=== PATIENT | male | born 1965 | race Caucasian/White ===

== ENCOUNTER 2022-12-25 11:15 | Outpatient (RCR) | payer OTHER, SELFPAY ==
--- NOTE | 2022-11-28 10:23 | PTOPEVAL1 ---
Assessment and note entered by Rosaura Boyer DPT Evaluation Information Assessment Status Evaluation Subjective Information Pt reports injuring his back a few weekends ago after running a chain saw and picking up a lot of brush. Tried chiropractor a few times which did not help. Has had back problems on and off for 20 years. Currently is having back pain and pain radiating down his right leg to his ankle laterally. Feels some n/t as well. No pain radiating down his left LE. Pain increases with prolonged standing. Feels relief with sitting. Pain relieved with pain pills as well. Has been able to cut back at work due to his pain. Had to take a break from his normal cooking/cleaning at home but has gradually started to do them again although he still has pain. No return to MD scheduled currently. Reported Pain Level Pain Score 3: Self Report Assessment PT Clinical Summary The patient is presenting to skilled therapy with a several week history of right radiating LBP. He presents with decreased lumbar ROM and signs of neural tension which are contributing to his pain with standing activities. He will benefit from skilled therapy to address these impairments and safely return to his prior level of function. Plan of Care Interventions Electrical Stimulation,Gait Training,Hot Pack/Cold Pack,Manual Therapy,Neuro Re-education,Patient/ Caregiver Education,Therapeutic Activities, Therapeutic Exercise,Self-Care/Home Management PT Services Indicated Yes Treatment Frequency and 2 times a week for 4 weeks Duration These treatments will address the objective and functional deficits as defined above. The patient will be advanced safely and appropriately in order for the patient to progress towards his/her prior level of function. Additional exercises will be introduced and as well as a comprehensive home exercise program upon discharge, if needed, ?to ensure carryover of functional gains achieved in the clinic. This treatment plan has been reviewed and agreement upon by the patient.
--- NOTE | 2022-12-25 16:33 | PTOPPROG ---
Assessment and note entered by Margaret Jaime, PT Assessment Status Progress Report Subjective Information Pt reports feeling 80-85% improved overall. No more pain in back but still numbness on outside right leg. Feels pressure today in right hip area. 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 Back to normal amount of work and cooking and cleaning. Reports able to stand at least an hour at a time. Usually is resting for other reasons. Reports no longer requires pain medication. Assessment PT Clinical Summary Pt reports feels 80-85% improved, cont to have numbness in right lower leg. Pressure in rihgt hip resolved with muscle energy technique today. Pt cont to demo decreased lumbar flexion, tight hamstrings, and symptoms in right leg. Was educated today on appropriate body mechanics while sitting at home. Would benefit from cont therapy at a reduced frequency to continue education on appropriate body mechanics with higher level activities, continued ROM exercises, muscle activation and reduce discomfort to return to prior level of function. Plan of Care Interventions Electrical Stimulation,Gait Training,Hot Pack/Cold Pack,Manual Therapy,Neuro Re-education,Patient/ Caregiver Educati,Therapeutic Activities, Therapeutic Exercise,Self-Care/Home Management PT Services Indicated Yes Treatment Frequency and 1 times a week for 6 weeks Duration These treatments will address the objective and functional deficits as defined above. The patient will be advanced safely and appropriately in order for the patient to progress towards his/her prior level of function. Additional exercises will be introduced and as well as a comprehensive home exercise program upon discharge, if needed, ?to ensure carryover of functional gains achieved in the clinic. This treatment plan has been reviewed and agreement upon by the patient.
--- NOTE | 2023-01-01 11:18 | PTOPDC ---
Assessment and note entered by Margaret Jaime, PT Assessment Status Discharge - Pt Not Present Subjective Information Pt reports feeling 80-85% improved overall. No more pain in back but still numbness on outside right leg. Feels pressure today in right hip area. 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 Back to normal amount of work and cooking and cleaning. Reports able to stand at least an hour at a time. Usually is resting for other reasons. Reports no longer requires pain medication. Assessment PT Clinical Summary Pt reports is doing well currently. Has opted to cease therapy at this time due to insurance yearly limitation on visits and will return if necessary at a later time. Thus pt is being discharged from therapy services.
== END 2023-01-01 11:39 | disposition home or self-care (01) ==
LOC: ANHHIPT 11:15
PROVIDERS: PCP Family Medicine; Visit Provider Family Medicine
DX: M54.50 Low back pain, unspecified (principal); S39.92XD Unspecified injury of lower back, subsequent encounter
CPT/HCPCS: 97014; 97110; 97112; 97140; 97161; G0283

== ENCOUNTER 2023-03-10 09:00 | Outpatient (NON) | payer OTHER, SELFPAY | END 2023-03-10 09:01 | disposition home or self-care (01) | LOC: ANHLAB 03-11 07:13 | PROVIDERS: PCP Physician Assistant Medical; Visit Provider Internal Medicine Gastroenterology | DX: Z12.11 Encounter for screening for malignant neoplasm of colon (principal) | CPT/HCPCS: 88305 ==

== ENCOUNTER 2023-06-23 08:45 | Outpatient (RCR) | payer OTHER, SELFPAY ==
--- NOTE | 2023-05-13 11:04 | PTOPEVAL1 ---
Assessment and note entered by Margaret Jaime, PT Evaluation Information Assessment Status Evaluation Diagnosis sprain of right rotator cuff capsule, right shoulder pain, abnormal posture Onset ~3 months Subjective Information Was on vacation last week and had no pain. Yesterday was shoveling and pain returned. Is also left handed. Increased use irritated shoulder, is bothersome because sleeps on right side. Reported Pain Level Pain Score 3: Self Report Assessment PT Clinical Summary Pt presents w/ complaints of right shoulder pain, diagnosis of ligament sprain, and abnormal postures. SC joint stress test (+), negative for rotator cuff, or labral tears. Demo's significantly internally rotated BUEs, pec major and minor tightness, and decreased cervical and thoracic ROM. Pt will thus benefit from physical therapy to address deficits, improve postural stability, and decrease discomfort with use. Plan of Care Interventions Electrical Stimulation,Hot Pack/Cold Pack,Manual Therapy,Neuro Re-education,Patient/Caregiver Educati,Therapeutic Activities,Therapeutic Exercise,Self-Care/Home Management,Ultrasound PT Services Indicated Yes Treatment Frequency and 1-2x weekly x 6 Duration These treatments will address the objective and functional deficits as defined above. The patient will be advanced safely and appropriately in order for the patient to progress towards his/her prior level of function. Additional exercises will be introduced and as well as a comprehensive home exercise program upon discharge, if needed, ?to ensure carryover of functional gains achieved in the clinic. This treatment plan has been reviewed and agreement upon by the patient.
--- NOTE | 2023-05-13 11:05 | OPREHPOC ---
Outpatient Therapy Plan of Care This is a Multidisciplinary Plan of Care that may contain components documented by all disciplines (PT, OT, and ST.) PT Problem 1 PT Problem #1 Knowledge Deficit PT Goal 1 Goal Pt will be independent in HEP Target Visit 8 PT Goal 2 Goal Pt will verbalize understanding of diagnosis and prognosis Target Visit 8 PT Problem 2 PT Problem #2 Pain PT Goal 1 Goal Pt will report greatest pain level at 3/10 or less Target Visit 8 PT Goal 2 Goal Pt will report resolution of pain Target Visit 12 PT Problem 3 PT Problem #3 Impaired Flexibility PT Goal 1 Goal Pt will demo pec major and minor flexibility WFL Target Visit 12 PT Problem 4 PT Problem #4 Impaired Coordination PT Goal 1 Goal Pt will demo ability to perform scapular stability with dynamic UE activities Target Visit 12
--- NOTE | 2023-06-23 10:06 | PTOPDC ---
Assessment and note entered by Margaret Jaime, PT Assessment Status Discharge Diagnosis sprain of right rotator cuff capsule, right shoulder pain, abnormal posture Onset ~3 months Subjective Information Pt reports is still irritated but has been using it a lot. Has not been able to get a posture support or new pillow. Was laying floor all weekend. Throwing is still problematic Still difficulty sleeping; improved, not waking up as much Has'nt been able to do exercises as would like, and cont to have difficulty with Overall pain is better Self-percieved improvement: 60% Reported Pain Level Pain Score 1: Self Report Assessment PT Clinical Summary Pt has attended therapy consistently for right shoulder pain and rotator cuff strain. Pt reports overall improvement of 60%, less pain with night time. Cont to have rounded shoudler postures and winging, improved pectoralis muscle flexibilty, full active ROM in all planes without pain. Pt has met multiple goals, progressed in multiple aspects, but has not met superintendent terminal goals for pain. Pt appears to have met max benefit for therapy at this time. Would benefit from further testing/ imaging and possible orthopeadic consult. Plan of Care PT Services Indicated No
== END 2023-07-15 11:55 | disposition home or self-care (01) ==
LOC: ANHHIPT 08:45
PROVIDERS: PCP Physician Assistant Medical; Visit Provider Family Medicine
DX: S43.421A Sprain of right rotator cuff capsule, initial encounter (principal); M25.511 Pain in right shoulder
CPT/HCPCS: 97014; 97110; 97112; 97140; 97161; 97750; G0283

== ENCOUNTER 2024-09-20 15:24 | Outpatient (CLI) | payer OTHER, SELFPAY ==
--- NOTE | ~2024-09-20 | US_ITS ---
Left lower quadrant ULTRASOUND Ordering provider: Renate Limon PA-C History: . R19.04 - Left lower quadrant abdominal swelling, mass and... . Comparison: None. FINDINGS/impression: Hypoechoic area is seen measuring 0.3 x 0.2 x 0.2 cm suggestive of a small lipoma versus a cyst. Lymp h node is less likely.. Vascularity is seen posterior to the area Reviewed, dictated and finalized at location A. OL OPERATOR
== END 2024-09-20 15:25 | disposition home or self-care (01) ==
PROVIDERS: PCP Physician Assistant Medical; Visit Provider Physician Assistant Medical
DX: R19.04 Left lower quadrant abdominal swelling, mass and lump (principal)
CPT/HCPCS: 76705

== ENCOUNTER 2024-10-11 00:37 | Day surgery (SDC) | payer BC, SELFPAY ==
[2024-10-08 12:38] VITALS: BMI 39.4
--- NOTE | 2024-10-08 12:42 | PC.NURSE ---
Report to the Outpatient Waiting Room, entrance under the green pavilion located off [facility], at time _1000_ on date _[id number]_. Planned Procedure Time: _1100_.? Time changes happen often and if your time is changed the preop area will call you the afternoon before. - You and your visitor will be asked to self-screen and do not enter if you have any COVID symptoms. Please call surgeon if you need to reschedule. - A mask is optional within the hospital at this time. Ok light breakfast and take medicines as usual Take only the following medications with a SIP of water on the morning of surgery: ____Ok all medicines.____ DO NOT STOP ANY OF YOUR OTHER PRESCRIPTION MEDICATIONS PRIOR TO SURGERY EXCEPT THE FOLLOWING Medications to discontinue per physician ___None____ Date to take last dose Please no make-up, nail maldivian, hairspray, perfume, deodorant, or body powder the day of surgery.? No jewelry (including any body piercings) or valuables the day of surgery, leave them at home.? Please take a shower or bath the night before, or the morning of, surgery with an antibacterial soap.? Wear comfortable, loose fitting clothing.? - Jewelry must be removed prior to entering the operating room.? Rings and piercings that are not removed may be cut off. - The hospital will not accept responsibility for valuables.? - Please leave all valuables, including medications, at home the day of surgery. Ok to drive and resume regular activities after surgery. Follow any additional instructions given to you from your surgeon. Telephone instructions given to _João__and asked if any additional questions and then verbalized understanding. Patient advised to call surgeon office or pre surgery nurse liaison [phone] if any additional questions.
[2024-10-11 12:00] VITALS: BP 162/88; PULSE 68; RESP 14; TEMP 36.3; O2SAT 98
--- NOTE | 2024-10-11 13:12 | WPDHPUPDATE1 ---
History and Physical Update Update Date/Time: 10/11/24 13:12 History and Physical has been reviewed, including an updated exam of the patient. There are NO changes in the patient's condition. Risks, benefits, and alternatives have been discussed and questions answered. Patient agrees to proceed with procedure.
[2024-10-11 14:35] VITALS: BP 155/84; PULSE 63; RESP 16; O2SAT 96
[2024-10-11] MEDS: LIDO 1%/EPINEPHRINE 1:100,000 20 ML VIAL 15 ML INFILTRATE (14:37)
[2024-10-11] MEDS: BUPivacaine HCL 0.5% PF 30 ML VIAL 15 ML INFILTRATE (14:42)
[2024-10-11 14:45] VITALS: BP 145/84; PULSE 64; RESP 16; O2SAT 95
[2024-10-11 14:55] VITALS: BP 140/76; PULSE 66; RESP 16; O2SAT 95
[2024-10-11 15:05] VITALS: BP 146/79; PULSE 64; RESP 16; O2SAT 95
[2024-10-11 15:11] VITALS: BP 155/86; PULSE 67; RESP 16; O2SAT 98
--- NOTE | 2024-10-11 15:13 | PM.OP ---
Procedure Note - Brief Procedure Note - Brief Date of procedure: 10/11/24 lower abdominal wall subq mass Post-op diagnosis: Same Procedure performed: Existing left lower quadrant abdominal wall subcutaneous mass Surgeon: Linden Ferrer MD Anesthesia: local Findings: 2.5 x 2 x 1 cm subcutaneous mass local abdominal wall grossly consistent with benign lipoma. Implants: None Estimated blood loss (mL): 15 Drains: No Packing: No Pathology: Yes (Lipoma to pathology) Complications: No immediate complications Condition: Stable Disposition: PACU
--- NOTE | 2024-10-12 09:01 | W.PM.PROC2 ---
Procedure Note - Detailed Date of Procedure 10/11/24 Pre-op Diagnosis Left lower abdominal wall subcutaneous mass Post-op Diagnosis Same Procedure Performed Excision left lower quadrant abdominal wall lipoma. Surgeon Linden Ferrer MD Anesthesia Local Indications Patient is a 59-year-old gentleman presented with a subcutaneous mass on left lower quadrant abdominal wall. Grossly was about 3x3cm on palpation. It was nontender. Because it was a new mass the patient wanted to have it removed for diagnostic purposes. He presents now for excision of the left lower quadrant abdominal wall subcutaneous mass. Findings The mass was grossly consistent with a benign lipoma. It measured [id number]. It was all subcutaneous and did not invade or go underneath the fascia underlying muscle. Description of Procedure After informed consent was obtained patient brought to the operating room was placed supine position on operating table in the left lower quadrant of the abdominal wall was then prepped and draped usual sterile fashion. A time-out was then performed correctly identifying the patient as well as procedure to be performed. Site marking was verified. No IV antibiotics were given as he did not have an IV started. 1% lidocaine mixed with 0.5% Marcaine was then injected around the mass for local anesthetic effect. Once adequate analgesia was achieved I then made a transverse incision over the palpable mass of the scalp was then dissected down through the dermis skin with a scalpel. I then dissected down into the subcutaneous tissues until I encountered the capsule to the lipomatous mass. The mass appeared to be consistent with a benign lipoma. Utilized electrocautery and blunt finger dissection I then completely excised out the lipomatous mass from the surrounding subcutaneous tissues. It did not extend into the fascia or into the muscle underneath the mass. Once the mass was completely excised out it was measured and was [id number]. This was sent to pathology for examination. I then irrigated out the incision sterile saline solution. Hemostasis was good. I then close incision utilizing multiple layers of interrupted 3-0 Vicryl sutures in the subcutaneous tissues. The skin edges were then approximated utilizing a running subcuticular 4-0 Monocryl suture. The incision was then cleaned the skin glue was applied. The patient tolerated the procedure well no complications. All sponges, needles, and instrument counts were correct at the end procedure. EBL was _20__cc. The patient was awakened and taken to recovery in stable and satisfactory condition. Implants None Estimated Blood Loss 20 Drains No Packing No Pathology Yes ( lipoma sent to pathology) Complications No immediate complications Condition Stable Disposition PACU [facility] Billing Surgery - Charge Forward: Surgery Billing
--- OUTSIDE RECORDS SUMMARY | 2024-10-18 03:12 | XMS_ITS | Encounter Summary ---
Author Organization [facility] Address [address] [place] [address]. [place] [address] [place] [address] Care Team Providers Care Drilling Engineering Manager Name Role Phone Unavailable Primary Care Provider Unavailabl e Encounter Details Date Type Department Care Team (Late st Contact Info) Description 01/17/2011 Abstract [facility] [address] [place] [address] Julius Younger MD [address] [place] [address] [address] [place] [address] Social History Tobacco Use Types Packs/Day Years Used Date Smoking Tobacco: Never Assessed Sex and Gender Information Value Date Recorded Sex Assigned at Not on file Legal Sex Male 7:48 PM CDT Gender Identity Not on file Sexual Orientation Not on file documented as of this encounter Plan of Treatment Not on file documented as of this encounter Visit Diagnoses Not on filedocumented in this encounter
--- OUTSIDE RECORDS SUMMARY | 2024-10-18 03:12 | XMS_ITS | Encounter Summary ---
Author Organization [facility] Address [address] [place] [address]. [place], [place] [id number] [place] [id number] Care Team Providers Care Civil Engineer In Training Name Role Phone Unavailable Primary Care Provider Unavailabl e Encounter Details Date Type Department Care Team (Late st Contact Info) Description 11/22/[address] [facility] [address] [place] [address] Social History Tobacco Use Types Packs/Day Years [...]
--- OUTSIDE RECORDS SUMMARY | 2024-10-18 03:12 | XMS_ITS | Encounter Summary ---
Author Organization [facility] Address [address] [place] [address]. [place] [address] [place] [address] Care Team Providers Care Bender Hand Name Role Phone Unavailable Primary Care Provider Unavailabl e Encounter Details Date Type Department Care Team (Late st Contact Info) Description 03/10/2017 Abstract [facility] [address] [place], [place] [id number] Renate Limon PA [address] [place], [place] [id number] Social History Tobacco Use Types Packs/Day Years Used Date Smoking Tobacco: Never Assessed Sex and Gender Information Value Date Recorded Sex Assigned at Not on file Legal Sex Male 7:48 PM CDT Gender Identity Not on file Sexual Orientation Not on file documented as of this encounter Plan of Treatment Not on file documented as of this encounter Procedures Procedure Name Priority Date/Time Associated Diagnosis Comments CARDIAC PROFILE STAT 03/10/2017 3:20 PM CDT COMPREHENSIVE METABOLIC PANEL STAT 03/10/2017 3:19 PM CDT CBC W/DIFF AUTOMATED STAT 03/10/2017 3:19 PM CDT documented in this encounter Results * CARDIAC PROFILE (03/10/2017 3:20 PM CDT) CPK 70 30 - 200 UNITS/L 03/10/2017 3:42 PM CDT [facility] CK-MB 0.7 NG/ML 03/10/2017 3:48 PM CDT [facility] Comment:CK-MB REFERENCE RANG ESNEGATIVE <5.0INDETERMINATE 5.0-5.6ELEVATED >5.6 TROPONIN I 0.00 NG/ML 03/10/2017 3:48 PM CDT [facility] Comment:TROPONIN REFERENCE R ANGESNEGATIVE <0.30ELEVATED >0.30 SERUM OR PLASMA SPECIMEN / Unknown 03/10/2017 3:20 PM CDT 03/10/2017 3:21 PM CDT us Generic Conversion Md [facility] Final R esult [facility] [address] [place] [address], [place] [phone] * (ABNORMAL) COMPREHENSIVE METABOLIC PANEL (03/10/2017 3:19 PM CDT) GLUCOSE 108(H) 70 - 105 MG/DL 03/10/2017 3:42 PM CDT [facility] BUN 11 8.4 - 24.7 MG/DL 03/10/2017 3:42 PM CDT [facility] CREATININE S/P/B 1.11 0.72 - 1.25 MG/DL 03/10/2017 3:42 PM CDT [facility] SODIUM S/P/B 143 136 - 145 MMOL/L 03/10/2017 3:42 PM CDT [facility] POTASSIUM S/P/B 4.1 3.5 - 5.1 MMOL/L 03/10/2017 3:42 PM CDT [facility] CHLORIDE S/P/B 109(H) 98 - 107 MMOL/L 03/10/2017 3:42 PM CDT [facility] CO2 27.0 22 - 29 MMOL/L 03/10/2017 3:42 PM CDT [facility] ANION GAP 11.1 10.0 - 24.0 MMOL/L 03/10/2017 3:42 PM [facility] OSMOLALITY (CALC) 285 271 - 290 MOSM/KG 03/10/2017 3:42 PM [facility] CALCIUM S/P/B 9.1 8.4 - 10.2 MG/DL 03/10/2017 3:42 PM [facility] BILIRUBIN TOTAL S/P/B 0.3 0.2 - 1.2 MG/DL 03/10/2017 3:42 PM [facility] TOTAL PROTEIN S/P/B 7.1 6.4 - 8.3 G/DL 03/10/2017 3:42 PM [facility] ALBUMIN S/P/B 4.0 3.5 - 5.0 G/DL 03/10/2017 3:42 PM [facility] AST 14 5 - 34 U/L 03/10/2017 3:42 PM [facility] ALT 19 6 - 55 U/L 03/10/2017 3:42 PM [facility] ALKALINE PHOSPHATASE S/P/B 87 40 - 115 U/L 03/10/2017 3:42 PM [facility] BUN CREATININE RATIO 9.9 6.0 - 26.0 03/10/2017 3:42 PM [facility] A/G RATIO 1.3 1.1 - 1.9 RATIO 03/10/2017 3:42 PM [facility] EGFR NON-AFR. AMER. >60 >60 ML/MIN/1.7 3 M2 03/10/2017 3:42 PM [facility] Comment: GFR Reference Range:Kidney Failure - <15mL/min ?Chronic Kidney Disease - <60mL/min ?? Normal Kidney Function - >60mL/min ?? GFR calculation is not recommended forPatients less than 18 years or greater than70 years as per the national Kidney Foundation.If the patient is -Sol[place] Islander, multiply results by 1.21 03/10/2017 3:19 PM CDT 03/10/2017 3:20 PM CDT us Generic Conversion Md [facility] Final R esult [facility] [address] [place] [address], * (ABNORMAL) CBC W/DIFF AUTOMATED (03/10/2017 3:19 PM CDT) WBC 6.8 4.4 - 11.0 x10'3/uL 03/10/2017 3:25 PM CDT [facility] RBC 4.72 4.50 - 5.90 x10'6/uL 03/10/2017 3:25 PM CDT [facility] HGB 14.8 14.0 - 17.5 G/DL 03/10/2017 3:25 PM CDT [facility] HCT 43.3 41.5 - 50.4 % 03/10/2017 3:25 PM CDT [facility] MCV 91.7 80.0 - 96.0 FL 03/10/2017 3:25 PM CDT [facility] MCH 31.4 26.5 - 31.4 PG 03/10/2017 3:25 PM CDT [facility] MCHC 34.2 31.9 - 34.8 G/DL 03/10/2017 3:25 PM CDT [facility] RDW 12.5 12.3 - 14.3 % 03/10/2017 3:25 PM CDT [facility] PLT 188 151 - 353 x10'3/uL 03/10/2017 3:25 PM CDT [facility] MPV 12.2(H) 9.7 - 11.9 FL 03/10/2017 3:25 PM CDT [facility] RBC MORPHOLOGY NORMAL 03/10/2017 3:25 PM CDT [facility] PLT MORPH. NORMAL 03/10/2017 3:25 PM CDT [facility] WBC MORPHOLOGY NORMAL 03/10/2017 3:25 PM CDT [facility] LYMPHOCYTES % 33.7 15.8 - 45.0 % 03/10/2017 3:26 PM CDT [facility] NEUTROPHILS % 56.0 42.1 - 71.9 % 03/10/2017 3:26 PM CDT [facility] MONOCYTES % 8.3 5.7 - 12.5 % 03/10/2017 3:26 PM CDT [facility] EOSINOPHILS 1.3 0.0 - 5.6 % 03/10/2017 3:26 PM CDT [facility] BASOPHILS 0.4 0.0 - 1.3 % 03/10/2017 3:26 PM CDT [facility] ABS. NEUTROPHILS TOTAL 3.79 1.40 - 6.00 x10'3/uL 03/10/2017 3:26 PM CDT [facility] IMMATURE GRANS % 0.3 0.0 - 0.5 % 03/10/2017 3:26 PM CDT [facility] ABS. LYMPHOCYTES 2.28 0.80 - 4.70 x10'3/uL 03/10/2017 3:26 PM CDT [facility] 03/10/2017 3:19 PM CDT 03/10/2017 3:20 PM CDT us Generic Conversion Md [facility] Final R esult [facility] [address] [place] [address], documented in this encounter Visit Diagnoses Diagnosis Chest pain Chest pain, unspecified documented in this encounter
--- OUTSIDE RECORDS SUMMARY | 2024-10-18 03:12 | XMS_ITS | Encounter Summary ---
Author Organization [facility] Address [address] [place] [address]. [place] [address] [place] [address] Care Team Providers Care Gem Stone Cutter Name Role Phone Unavailable Primary Care Provider Unavailabl e Encounter Details Date Type Department Care Team (Late st Contact Info) Description 01/03/2005 Abstract [facility] [address] [place] [address] , Haritha Brown MD Social History Tobacco Use Types Packs/Day Years [...]
--- OUTSIDE RECORDS SUMMARY | 2024-10-18 03:12 | XMS_ITS | Encounter Summary ---
Author Organization [facility] Address [address] [place] [address]. [place] [address] [place] [address] Care Team Providers Care Compound Specialist Name Role Phone Unavailable Primary Care Provider Unavailabl e Encounter Details Date Type Department Care Team (Late st Contact Info) Description 07/18/2014 Abstract [facility] [address] [place] [address] Chilo Mcfarlane MD [address] [facility] [place] [address] Social History Tobacco Use Types Packs/Day Years Used Date Smoking Tobacco: Never Assessed Sex and Gender Information Value Date Recorded Sex Assigned at Not on file Legal Sex Male 7:48 PM CDT Gender Identity Not on file Sexual Orientation Not on file documented as of this encounter Plan of Treatment Not on file documented as of this encounter Visit Diagnoses Diagnosis Low back pain Lumbago documented in this encounter
--- OUTSIDE RECORDS SUMMARY | 2024-10-18 03:12 | XMS_ITS | Encounter Summary ---
Author Organization [facility] Address [address] [place] [address]. [place], [place] [id number] [place] [address] Care Team Providers Care Band Head Saw Operator Name Role Phone Unavailable Primary Care Provider Unavailabl e Encounter Details Date Type Department Care Team (Late st Contact Info) Description 01/03/[address] [facility] [address] [place] [address] Nohemi Belcher MD [address] [place] [address] Social History Tobacco Use Types Packs/Day Years [...]
--- OUTSIDE RECORDS SUMMARY | 2024-10-18 03:12 | XMS_ITS | Encounter Summary ---
Author Organization [facility] Address [address] [place] [address]. [place] [address] [place] [address] Care Team Providers Care Store Worker Name Role Phone Unavailable Primary Care Provider Unavailabl e Encounter Details Date Type Department Care Team (Late st Contact Info) Description 04/13/2012 Abstract [facility] [address] [place], [place] [id number] Heriberto Pittman MD [address] [place] [id number] Social History Tobacco Use Types Packs/Day Years [...]
--- OUTSIDE RECORDS SUMMARY | 2024-10-18 03:12 | XMS_ITS | Clinical Summary ---
Author Organization [facility] Address [address] [place] [address]. [place], [place] [id number] [place] [address] Care Team Providers Care Clean In Places Operator Name Role Phone Unavailable Primary Care Provider Unavailabl e Social History Tobacco Use Types Packs/Day Years Used Date Smoking Tobacco: Never Assessed Sex and Gender Information Value Date Recorded Sex Assigned at Not on file Legal Sex Male 7:48 PM CDT Gender Identity Not on file Sexual Orientation Not on file Plan of Treatment Health Maintenance Due Date Last Done Comments Colorectal Cancer Screening Colonoscopy (10 Years) 1964 Annual Physical 1967 Hepatitis C 1982 DTaP, Tdap and Td Vaccines ( 1 - Tdap) 1983 Zoster Vaccines (1 of 2) 2014 COVID-19 Vaccine (2023-2 5 season) 2024 Influenza Adult (#1) 2024 RSV Immunization or 60+ Years (1 - 1-dose 75+ series) 2039 Meningococcal Vaccine Aged Out No bran sergio eligible based on patient's age to complete this topic Pneumococcal Vaccine: Pediat rics (0 to 5 Years) and At-Risk Patients (6 to 64 Years) Aged Out No longer eligible b ased on patient's age to complete this topic RSV Immunizations Under 20 Months Aged Out No longer eligible based on patient's age to complete this topic
--- OUTSIDE RECORDS SUMMARY | 2024-10-18 03:12 | XMS_ITS | Encounter Summary ---
Author Organization [facility] Address [address] [place] [address]. [place] [address] [place] [address] Care Team Providers Care Silicator Name Role Phone Unavailable Primary Care Provider Unavailabl e Encounter Details Date Type Department Care Team (Late st Contact Info) Description 10/26/2010 Abstract [facility] [address] [place] [address] Julius Younger MD [address] [place] [address] [address] [place] [address] Social History Tobacco Use Types Packs/Day Years [...]
--- NOTE | 2024-10-25 14:46 | P.HP_ITS ---
H&P: HPI History of Present Illness Date/Time: 10/25/24 14:46 Chief Complaint: Left lower quadrant abdominal wall subcutaneous mass Narrative: Mr. Limon presents to the office at the request of Renate Limon PA-C for evaluation. The patient recently noticed a left-sided palpable mass. He states area is nontender and no history of infection to the area. Has history of excision of a palpable mass on his upper back and was told at the time it was abnormal and to have any future masses addressed. Review of Systems Review of Systems: The remainder of the review of systems to include constitutional, HEENT, cardiovascular, respiratory, GI, , integumentary, musculoskeletal, endocrine, immunologic, hematologic, psychiatric, and neurologic are all negative except for which is mentioned above in the HPI. [facility] Past Medical History Medical History Hyperglycemia Sprain of right rotator cuff capsule Hypercholesterolemia Mass of sternum Fatigue Back injury Lumbar pain Mood disturbance Insomnia Pre-diabetes Obesity Dyslipidemia Surgical History Surgical History H/O colonoscopy 03/10/23 Family History Family History Grandparent Diabetes mellitus Sibling Obesity Father Obesity Social History Social History Social History: 08/17/24 Patient declined SDOH Smoking status: Never smoker Alcohol intake: current Drinks per week: 1 Substance use: never Substance use type: does not use Do You Feel Safe in your Home?: Yes Lack of Transportation: No Lack of Food: Never True Current Housing: I Have Housing Concerned About Future Housing: No Difficulty Paying Gas/Electric Bills: No Difficulty Paying for Meds: No Currently Unemployed: No Education: Trade/Vocational Certificate Difficulty w/ Childcare or Family Care: No Living arrangements: with family Occupation/Education: occupation Gender identity (if verbalized by the patient): Male Spiritual care concerns: No Meds Home Medications and Allergies Home Medications ?Medication ?Instructions ?Recorded ?Confirmed ?Type mupirocin 2 % topical ointment 1 applic topical BID #15 grams 06/19/23 10/08/24 Rx phentermine 15 mg capsule 15 mg PO DAILY #30 caps 07/22/24 10/08/24 Rx pantoprazole 40 mg tablet,delayed 40 mg PO DAILY #90 tabs 08/27/24 10/08/24 Rx release ezetimibe 10 mg tablet (Zetia) 10 mg PO DAILY #90 tabs 09/20/24 10/08/24 Rx zolpidem 5 mg tablet (Ambien) 5 mg PO QHS PRN insomnia #30 tabs 10/08/24 Rx vilazodone 20 mg tablet (Viibryd) 20 mg PO DAILY #90 tabs 10/22/24 Rx Allergies Allergy/AdvReac Type Severity Reaction Status Date / Time No Known Allergies Allergy Verified 10/11/24 12:25 Exam Const: General: comfortable and no acute distress HENMT: Ears: TM's normal bilaterally Face/Nose/Sinus: Normal nares present Mouth: Yes moist mucous membranes Eyes: General: appearance normal, both eyes and all related structures Sclera: sclerae normal Pupils: Equal, round and reactive pupils present EOM: EOMs intact bilaterally Neck: Neck: supple and no JVD Resp: Effort & Inspection: normal respiratory effort Auscultation: clear to auscultation bilaterally Cardio: Rate: regular rate Rhythm: regular rhythm GI: Other: 2.5 x 1.5cm left lower abdominal wall ma ss. Well circumscribed, no redness, and nontender. Skin: General skin exam: normal color and no rashes or lesions noted Neuro: Speech: normal speech Motor exam (neuro): 5/5 motor strength present throughout Sensory Exam: normal sensation Extrem: General: normal to inspection Psych: Mental Status: mental status grossly normal Affect: normal affect Assessment and Plan Assessment and plan (1) Abdominal wall mass of left lower quadrant: Code(s): R19.04 - Left lower quadrant abdominal swelling, mass and lump Status: Acute Assessment and Plan: Prior to the patients visit, I reviewed the office note of Renate Limon PA-C as well as the results from her recent ultrasound. Patient has a left lower abdominal wall subcutaneous mass of unknown origin. I've recommended proceeding with excision of the mass to be performed in the or under local anesthesia. The procedure was explained in detail including description, risks, benefits, wound care after the surgery, recovery, and expected outcome. He wishes to proceed as discussed.
== END 2024-10-11 15:24 | disposition home or self-care (01) ==
PROVIDERS: PCP Physician Assistant Medical; Visit Provider Surgery
PROC: (CPT 22903; principal; 2024-10-11 13:00)
DX: D17.5 Benign lipomatous neoplasm of intra-abdominal organs (principal); R73.9 Hyperglycemia, unspecified; R73.03 Prediabetes; E78.00 Pure hypercholesterolemia, unspecified; G47.00 Insomnia, unspecified; Z98.890 Other specified postprocedural states; Z98.1 Arthrodesis status
CPT/HCPCS: 22903; 88304; A9270; J2004

== ENCOUNTER 2025-01-25 09:42 | Outpatient (CLI) | payer BC, SELFPAY ==
--- NOTE | ~2025-01-25 | XR_ITS ---
Bilateral Hands Technique: PA, oblique, and lateral views, and ball-catcher's view were obtained. Clinical History: Arthritis Findings: No acute fracture or dislocation is seen. Osseous alignment is anatomic. Joint spaces are p reserved. Soft tissues are unremarkable. Impression: Unremarkable bilateral hand radiographs. Reviewed, dictated and finalized at location . Impression: Unremarkable bilateral hand radiographs.
--- NOTE | ~2025-01-25 | XR_ITS ---
Left wrist Technique: PA, oblique, lateral, and ulnar deviation views were obtained. Clinical History: Pain Findings: No acute fracture or dislocation is seen. Osseous alignment is anatomic. Joint spaces are p reserved. Soft tissues are unremarkable. Impression: Unremarkable left wrist radiographs. Reviewed, dictated and finalized at location . Impression: Unremarkable left wrist radiographs.
--- NOTE | ~2025-01-25 | XR_ITS ---
Right wrist Technique: PA, oblique, lateral, and ulnar deviation views were obtained. Clinical History: Pain Findings: No acute fracture or dislocation is seen. Osseous alignment is anatomic. Joint spaces are p reserved. Soft tissues are unremarkable. Impression: Unremarkable right wrist radiographs. Reviewed, dictated and finalized at location . Impression: Unremarkable right wrist radiographs.
--- OUTSIDE RECORDS SUMMARY | 2025-01-25 10:38 | XMS_ITS | Clinical Summary ---
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
--- NOTE | 2025-01-25 11:00 | NEURO_ITS ---
Impression: # Complains of numbness of hands.. ? # Bilateral Carpal Tunnel Syndrome. ? # Bilateral ulnar neuropathy across the elbows. ? # Normal needle/EMG exam. Nerve Conduction Studies Anti Sensory Summary Table ?Stim Site NR Peak (ms) P-T Amp (?V) Site1 Site2 Delta-P (ms) Dist (cm) Anson (m/s) Left Median Anti Sensory (2-3nd Digit) Wrist ? 4.7 7.8 Wrist 2-3nd Digit 4.7 14.0 30 Wrist ? 5.0 15.1 Wrist 2-3nd Digit 4.7 14.0 30 Right Median Anti Sensory (2-3nd Digit) Wrist ? 4.9 20.4 Wrist 2-3nd Digit 4.9 14.0 29 Wrist ? 4.8 4.8 Wrist 2-3nd Digit 4.9 14.0 29 Left Radial Anti Sensory (Base 1st Digit) Wrist ? 2.0 21.6 Wrist Base 1st Digit 2.0 0.0 Right Radial Anti Sensory (Base 1st Digit) Wrist ? 2.5 12.2 Wrist Base 1st Digit 2.5 0.0 Left Ulnar Anti Sensory (5th Digit) Wrist ? 2.8 32.4 Wrist 5th Digit 2.8 14.0 50 Right Ulnar Anti Sensory (5th Digit) Wrist ? 3.1 29.2 Wrist 5th Digit 3.1 14.0 45 Motor Summary Table ?Stim Site NR Onset (ms) O-P Amp (mV) Site1 Site2 Delta-0 (ms) Dist (cm) Anson (m/s) Left Median Motor (Abd Poll Brev) Wrist ? 4.2 4.6 Elbow Wrist 6.7 30.0 45 Elbow ? 10.9 1.7 Right Median Motor (Abd Poll Brev) Wrist ? 4.5 1.1 Elbow Wrist 6.0 31.0 52 Elbow ? 10.5 2.7 Left Ulnar Motor (Abd Dig Minimi) Wrist ? 3.0 4.9 A Elbow Wrist 6.5 30.0 46 A Elbow ? 9.5 4.1 B Elbow Wrist 4.6 25.0 54 B Elbow ? 7.6 3.4 Right Ulnar Motor (Abd Dig Minimi) Wrist ? 3.0 7.6 A Elbow Wrist 7.3 31.0 42 A Elbow ? 10.3 6.0 B Elbow Wrist 5.1 24.0 47 B Elbow ? 8.1 6.3 F Wave Studies ?NR F-Lat (ms) L-R F-Lat (ms) Left Median (Mrkrs) (Abd Poll Brev) ? 35.61 0.53 Right Median (Mrkrs) (Abd Poll Brev) ? 36.14 0.53 Left Ulnar (Mrkrs) (Abd Dig Min) ? 32.14 2.15 Right Ulnar (Mrkrs) (Abd Dig Min) ? 34.30 2.15 EMG ?Side Muscle Nerve Root Ins Act Fibs Amp Dur Recrt Comment Right 1stDorInt Ulnar C8-T1 Nml Nml Nml Nml Nml Right Ext Indicis Radial (Post Int) C7-8 Nml Nml Nml Nml Nml Right Ext Digitorum Radial (Post Int) C7-8 Nml Nml Nml Nml Nml Right BrachioRad Radial C5-6 Nml Nml Nml Nml Nml Right PronatorTeres Median C6-7 Nml Nml Nml Nml Nml Right Abd Poll Brev Median C8-T1 Nml Nml Nml Nml Nml Right ABD Dig Min Ulnar C8-T1 Nml Nml Nml Nml Nml Right FlexPolLong Median (Ant Int) C7-8 Nml Nml Nml Nml Nml Right Abd Poll Long Radial (Post Int) C7-8 Nml Nml Nml Nml Nml Left 1stDorInt Ulnar C8-T1 Nml Nml Nml Nml Nml Left Ext Indicis Radial (Post Int) C7-8 Nml Nml Nml Nml Nml Left Ext Digitorum Radial (Post Int) C7-8 Nml Nml Nml Nml Nml Left BrachioRad Radial C5-6 Nml Nml Nml Nml Nml Left PronatorTeres Median C6-7 Nml Nml Nml Nml Nml Left Abd Poll Brev Median C8-T1 Nml Nml Nml Nml Nml Left ABD Dig Min Ulnar C8-T1 Nml Nml Nml Nml Nml Left FlexPolLong Median (Ant Int) C7-8 Nml Nml Nml Nml Nml Left Abd Poll Long Radial (Post Int) C7-8 Nml Nml Nml Nml Nml MTDD
== END 2025-01-25 09:43 | disposition home or self-care (01) ==
PROVIDERS: PCP Physician Assistant Medical; Visit Provider Physician Assistant Medical
DX: R20.2 Paresthesia of skin (principal); M79.641 Pain in right hand; M79.642 Pain in left hand; M25.531 Pain in right wrist; M25.532 Pain in left wrist
CPT/HCPCS: 73110; 73130; 95886; 95911